=== PATIENT | female | born 1995 | race African-American/Black ===

== ENCOUNTER → 2016-08-24 | Outpatient (CLI) | payer OTHER ==
[~2016-08-24] MED LIST: ACET250T3 PO; MULT-65 PO; VENTAER INH; VITA100021 SL
--- NOTE | 2016-08-25 23:14 | HM ---
Date Performed: 08/24/2016 Time Performed: 10:05:00 HOOKUP DATE: 08/24/16 10:05:00 AM Tue ANALYSIS START TIME: 08/24/2016 10:10:00 AM ANALYSIS END TIME: 08/25/2016 10:14:00 AM PATIENT AGE: 20 PATIENT HEIGHT PATIENT WEIGHT DRUG LIST PATIENT DIAGNOSIS: ABN EKG/DIZZINESS TEST NARRATIVE: The patient's average heart rate was 81 BPM. Heart rates greater than 120 B PM were noted 2% of the time. No episodes of bradycardia were noted. No pauses exceeding 2.0 sec onds were noted. 1 ventricular ectopics, which represented < 1% of the total beat count, were not ed. The highest ventricular ectopic frequency occurred from 07:00 PM to 08:00 PM Tue. During this t radha 1 VE(s) occurred. Ventricular ectopics were observed as 1 isolated beat(s) only. No couplets or runs were noted. 1 supraventricular ectopics, which represented < 1% of the total beat count, we re noted. The highest supraventricular ectopic frequency occurred from 11:00 PM to 12:00 AM Wed. Du ring this time 1 SVE(s) occurred. Multiple episodes of ST depression (defined as -1.0 mm or more) were noted in channel 1. The maximum depression of -2.6 mm occurred at 05:52:04 PM Tue. Multiple episodes of ST depression (defined as -1.0 mm or more) were noted in channel 2. The maximum depress ion of -2.4 mm occurred at 05:52:11 PM Tue. No episodes of ST depression (defined as -1.0 mm or more ) were noted in channel 3. TEST INTERPRETATION: Sinus rhythm Multiple bursts of supraventricular tachycardia at a rate between 135 to 150 observed Rare PVCs No p auses, No ventricular tachycardia observed. There is no entry in the diary Signed by : Júnior Perea
== END ==
LOC: HCAV 09:44
PROVIDERS: ATTEND Family Medicine
DX: R42 Dizziness and giddiness (principal); I49.8 Other specified cardiac arrhythmias
CPT/HCPCS: 93225; 93226

== ENCOUNTER 2016-09-24 06:51 | Day surgery (SDC) | payer OTHER ==
[~2016-09-24] VITALS: Ht 162.6 cm; Wt 86.4 kg
[~2016-09-24 06:51] MED LIST changes: -ACET250T3 PO; -MULT-65 PO; -VITA100021 SL
[2016-09-24 07:08] VITALS: BP 145/91; PULSE 81; RESP 20; TEMP 98.8; O2SAT 98
[2016-09-24] MEDS ORDERED: MULT-65 PO (07:18)
[2016-09-24] MEDS ORDERED: VITA100021 SL (07:18)
[2016-09-24 07:37] LABS: AUTOMATED NEUTROPHIL # 6.5 TH/MM3 (1.8-7.7); BASOPHIL # 0.1 TH/MM3 (0-0.2); BASOPHIL % 0.6 % (0.0-2.0); EOSINOPHIL # 0.2 TH/MM3 (0-0.4); EOSINOPHIL % 1.3 % (0.0-4.0); HEMO FLAGS DIFF FINAL; LYMPH % 34.3 % (9.0-44.0); LYMPHOCYTE # 3.9 TH/MM3 (1.0-4.8); MEAN CELL VOLUME 88.2 FL (80.0-100.0); MEAN CORPUSCULAR HEMOGLOBIN 29.8 PG (27.0-34.0); MEAN CORPUSCULAR HGB CONC 33.8 % (32.0-36.0); MONO % 7.1 % (0.0-8.0); NEUT % 56.7 % (16.0-70.0); PLATELET COUNT 216 TH/MM3 (150-450); RED BLOOD COUNT 4.88 MIL/MM3 (4.00-5.30); RED CELL DISTRIBUTION WIDTH 13.1 % (11.6-17.2); WHITE BLOOD COUNT 11.5 TH/MM3 (4.0-11.0)
[2016-09-24 07:45] LABS: PROTHROMBIN TIME - PATIENT 10.6 SEC (9.8-11.6)
[2016-09-24 08:12] LABS: BICARBONATE 25.1 MEQ/L (21.0-32.0)
[2016-09-24 08:13] LABS: POTASSIUM 4.2 MEQ/L (3.5-5.1)
[2016-09-24 09:15] VITALS: BP 115/63; PULSE 77; RESP 18; TEMP 99.3; O2SAT 94
--- NOTE | 2016-09-24 09:24 | PD.RAD ---
Post Procedure Progress Note Pre Procedure Diagnosis: (1) Vertiginous syndrome and labyrinthine disorder Post Procedure Diagnosis: (1) Vertiginous syndrome and labyrinthine disorder Procedure Date: Sep 24, 2016 Supervising Radiologist: Mak De Leon JR Proceduralist/Assist: Tj Rae, RT(R), Erin Us RT(R)(CV) Anesthesia: Local Plan of Activity Patient to Unit: ROPU Patient Condition: Good See PACS Report for procedural detail/treatment Spinal Procedure Lumbar Puncture L3-L4 Fluid Removal (CCs): 13 Fluid Description: Clear Puncture Time: 08:55 Findings: Opening pr: 31.2 cm H2O Closing pr: 17.8 cm H2O Jr. Moises,Mak Hurley MD Sep 24, 2016 09:24
--- NOTE | 2016-09-24 14:06 | RADRPT ---
EXAM DATE/TIME: 09/24/2016 07:31 [place] COMPARISON: No previous studies available for comparison. INDICATIONS : Patient presents with recurrent headaches and papilledema in need of lumbar puncture with opening an d closing pressures. MEDICAL HISTORY : Asthma hx Papilledema SURGICAL HISTORY : N/A ENCOUNTER: Initial ACUITY: 7 - 11 months PAIN SCORE: 0/10 LOCATION: N/A LUMBAR PUNCTURE TIME: 08:55 hours FLUORO TIME: 0.9 minutes IMAGE SERIES: 0 ACCESS LEVEL: L3-4 OPENING PRESSURE: 31.2 cm of water CLOSING PRESSURE: 17.8 cm of water FLUID: 13 cc of clear CSF was collected and sent to the laboratory for analysis. PROCEDURE : 1. Fluoroscopic guided lumbar puncture. 2. Recording of opening pressure. The risks, benefits and alternatives to the procedure were explained and verbal and written consent w as obtained. The site was prepped in sterile fashion. Full sterile technique was used, including ca p, mask, sterile gloves and gown and a large sterile sheet. Hand hygiene and 2% chlorhexidine and/or betadine/alcohol prep was utilized per protocol for cutaneous antisepsis. The skin and subcutaneous tissues were infiltrated with local anesthetic solution. With fluoroscopic guidance the lumbar thecal sac was punctured at the above level described above and the opening pressure was recorded. The above described fluid was removed without difficulty. The patient tolerated the procedure well and there were no complications. CONCLUSION: Uncomplicated fluoroscopically guided lumbar puncture with pressures as above. Mak De Leon Jr., MD on September 24, 2016 at 14:04 Board Certified Radiologist. This report was verified electronically.
== END 2016-09-24 11:30 | disposition home or self-care (01) ==
LOC: HROP 06:51 → HRIP 06:55 → HROP 11:30
PROVIDERS: ATTEND Psychiatry & Neurology Neurology
DX: H47.10 Unspecified papilledema (principal); R42 Dizziness and giddiness; R51 Headache; J45.909 Unspecified asthma, uncomplicated
CPT/HCPCS: 62270; 77003; 80048; 82945; 84157; 85025; 85610; 85730

== ENCOUNTER 2016-11-08 23:52 | Emergency (ER) | payer SELFPAY ==
[~2016-11-08] VITALS: Ht 167.6 cm; Wt 78.0 kg
[~2016-11-08 23:52] MED LIST changes: +MULT-65 PO; +VITA100021 SL
[2016-11-08 23:54] VITALS: BP 139/85; PULSE 60; RESP 16; TEMP 98.7; O2SAT 99
[2016-11-09] MEDS ORDERED: ACET250T3 PO ×2 (00:28→00:59)
[2016-11-09] MEDS ORDERED: ONDANSETRON ODT 4 MG TAB PO ONE (00:45)
[2016-11-09] MEDS ORDERED: ACETAMINOPHEN 325 MG TAB PO ONE (00:45)
--- NOTE | 2016-11-09 00:59 | PD ---
HPI Chief Complaint: Headache Time Seen by Provider: 00:27 Travel History International Travel<30 days: No Contact w/Intl Traveler<30days: No Traveled to known affect area: No History of Present Illness HPI The patient is a 21 year old female who presents to the [facility] emergency department with a history of recurrent headaches and nausea that began today. She reports that she has a history of being diagnosed with intracranial hypertension by Dr. Nolen in September 2016 after having a lumbar puncture with an elevated opening pressure done in interventional radiology Department. She was started on Acetazolamide reports that her headaches had improved. She reports that she is followed by the [facility] eye clinic for any eye changes. She denies having any vision changes currently. She reports that the headache starts on her temples and covers her entire head. She reports that this is her usual headache related to this diagnosis. She reports having nausea but no vomiting. She denies having any diarrhea. She has had a recent cough, however she denies any nasal discharge or fever. She denies having any one-sided weakness, slurred speech, facial droop, difficulty with word finding ability, or double vision. A review of systems, the patient denies any neck pain, chest pain, shortness of breath, abdominal pain, vomiting, diarrhea, urinary symptoms, or other neurologic symptoms. [facility] Past Medical History Narrative Medical The patient's past medical history is significant for intracranial hypertension , palpitations, asthma. 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 Surgical History: No Previous Surgery Abdominal Surgery: No AICD: No Cardiac Surgery: No Ear Surgery: No Endocrine Surgery: No Eye Surgery: No Genitourinary Surgery: No Gynecologic Surgery: No Joint Replacement: No Neurologic Surgery: No Oral Surgery: No Pacemaker: No Thoracic Surgery: No Other Surgery: No Social History Alcohol Use: No Tobacco Use: No Substance Use: No Allergies-Medications (Allergen,Severity, Reaction): Coded Allergies: Banana (Verified Allergy, Mild, THROAT SWELLS, 11/08/16) Reported Meds & Prescriptions Reported Meds & Active Scripts Active Reported Acetazolamide 250 Mg Tab 250 Mg PO BID Review of Systems General / Constitutional: No: Fever Eyes: No: Diploplia, Blurred Vision, Blind Spots, Visual changes HENT: Positive: Headaches, No: Congestion Cardiovascular: No: Chest Pain or Discomfort Respiratory: Positive: Cough, No: Shortness of Breath Gastrointestinal: Positive: Nausea, No: Vomiting, Diarrhea, Abdominal Pain, Hematemesis, Hematochezia, Constipation, Changes in Bowel Habits, Indigestion, Loss of Appetite Genitourinary: No: Dysuria Musculoskeletal: No: Pain Skin: No Rash Neurologic: Positive: Headache, No: Weakness, Focal Abnormalities, Change in Mentation, Slurred Speech, Sensory Disturbance Psychiatric: No: Depression Endocrine: No: Polydipsia Hematologic/Lymphatic: No: Easy Bruising Physical Exam Narrative General: The patient is a well-developed well-nourished female in no acute distress. Head and Neck exam: Head is normocephalic atraumatic. Eyes: EOMI, pupils are equal round and reactive to light. Nose: Midline septum with pink mucous membranes Mouth: Dentition unremarkable. Moist mucus membranes. Posterior oropharynx is not erythematous. No tonsillar hypertrophy. Uvula midline. Airway patent. Neck: No palpable lymphadenopathy. No nuchal rigidity. No thyromegaly. Cardiovascular: Regular rate and rhythm without murmurs, gallops, or rubs. Lungs: Clear to auscultation bilaterally. No wheezes, rhonchi, or rales. Abdomen: Soft, without tenderness to palpation in all 4 quadrants of the abdomen. No guarding, rebound, or rigidity. Normal bowel sounds are audible. No tenderness on palpation of McBurney's point. Extremities: No clubbing, cyanosis, or edema. 2+ pulses in all 4 extremities. No calf tenderness on palpation. Back: No costovertebral angle tenderness to palpation. Neurologic Exam: Cranial nerves 2-12 were intact on exam. Strength is 5/5 in all 4 extremities. No sensory deficits noted. Skin Exam: No rash noted. Intact skin that is warm and dry. Data Data Last Documented VS Vital Signs Date Time Temp Pulse Resp B/P Pulse Ox O2 Delivery O2 Flow Rate FiO2 11/09/16 00:24 100 Room Air 11/08/16 23:54 98.7 60 16 139/85 Orders Ondansetron Odt (Zofran Odt) (11/09/16 00:45) Acetaminophen (Tylenol) (11/09/16 00:45) MDM Medical Decision Making Medical Screen Exam Complete: Yes Emergency Medical Condition: Yes Medical Record Reviewed: Yes Differential Diagnosis Increased intracranial pressure related to recurrence of intracranial hypertension from medication noncompliance, versus tension headache, versus migraine headache, versus sinus headache, versus viral syndrome Narrative Course During the course of the patients emergency department visit, the patients history, examination, and differential diagnosis were reviewed with the patient. The patient was provided Tylenol for pain, Zofran oral dissolving tablet for nausea. The patient reports that she ran out of her medication as she has recently had an insurance change and was unable to follow-up with her neurologist. I did explain that the patient's primary care physician, Dr. Allen would likely also prescribed this medication in the interim while the patient is awaiting follow-up with a neurologist again. However at this time we will go ahead and refill the patient's prescription for a month's supply. She is instructed to follow-up with her primary care doctor for reexamination in the next week, if not sooner if the symptoms continue. The patient is resting comfortably and feels better, is alert and in no distress. The patients examination findings were discussed with the patient. The repeat examination is unremarkable and benign. The history, exam, diagnostic testing, and current condition do not suggest any significant pathology to warrant further testing, continued ED treatment, admission, or surgical evaluation at this point. The vital signs have been stable. The patient does not have uncontrollable pain, intractable vomiting, or other significant symptoms. The patient's condition is stable and appropriate for discharge. The patient will pursue further outpatient evaluation with a primary care physician or other designated or consulting physician as indicated in the discharge instructions. The patient expressed understanding and was agreeable with this plan. Diagnosis Primary Impression: Headache Qualified Code: G44.89 - Other headache syndrome Additional Impression: Intracranial hypertension, benign Referrals: Primary Care Physician 1 week Patient Instructions: General Instructions, Idiopathic Intracranial Hypertension (ED) Med/Other Pt SpecificInfo: Prescription(s) given Scripts Acetazolamide 250 Mg [id number] Mg PO BID #60 TAB Ref 0 Prov:Kaylynn Woody MD 11/09/16 Disposition: 01 DISCHARGE HOME Condition: Stable Kaylynn Woody MD November 09, 2016 00:59
== END 2016-11-09 02:24 | disposition home or self-care (01) ==
LOC: NEPE 23:52
DX: G44.89 Other headache syndrome (principal); G93.2 Benign intracranial hypertension; R11.0 Nausea; R05 Cough; Z87.09 Personal history of other diseases of the respiratory system; Z86.69 Personal history of other diseases of the nervous system and sense organs; Z86.79 Personal history of other diseases of the circulatory system; Z87.2 Personal history of diseases of the skin and subcutaneous tissue
CPT/HCPCS: 99283

== ENCOUNTER 2017-02-12 16:31 | Emergency (ER) | payer BC ==
[~2017-02-12 16:31] MED LIST changes: +ACET250T3 PO; -MULT-65 PO; -VENTAER INH; -VITA100021 SL
[2017-02-12 16:33] VITALS: BP 130/89; PULSE 97; RESP 15; TEMP 98; O2SAT 99
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
[2017-02-12] MEDS ORDERED: IBUP-232 PO (17:10)
[2017-02-12] MEDS ORDERED: CYCL1TAB29 PO (17:10)
[2017-02-12] MEDS ORDERED: IBUPROFEN 600 MG TAB PO ONE (17:15)
== END 2017-02-12 17:35 | disposition home or self-care (01) ==
LOC: NEPD 16:31
DX: S00.03XA Contusion of scalp, initial encounter (principal); S16.1XXA Strain of muscle, fascia and tendon at neck level, initial encounter; J45.909 Unspecified asthma, uncomplicated; Y04.0XXA Assault by unarmed brawl or fight, initial encounter
CPT/HCPCS: 99283